=== PATIENT | female | born 1970 | race Caucasian/White ===

== ENCOUNTER 2019-07-07 07:47 | Emergency (ER) | payer OTHER ==
[~2019-07-07] VITALS: Ht 175.3 cm; Wt 81.7 kg
[2019-07-07] MEDS ORDERED: BACPOLTO RIGHTEYE (08:39)
== END 2019-07-07 08:51 | disposition home or self-care (01) ==
LOC: ER 07:47
DX: H10.021 Other mucopurulent conjunctivitis, right eye (principal); Z88.8 Allergy status to other drugs, medicaments and biological substances
CPT/HCPCS: 99283

== ENCOUNTER 2021-02-22 06:54 | Day surgery (SDC) | payer OTHER ==
[~2021-02-22] VITALS: Ht 175.3 cm; Wt 91.9 kg
[~2021-02-22 06:54] MED LIST: B COMPLEX FORM0.4 MG; BACPOLTO RIGHTEYE; FOLI1; HYDSUL200; MAGCHL64ER; METTREX2.5; MULVITA; VITAMIN D5000 UNIT
== END 2021-02-22 09:21 | disposition home or self-care (01) ==
LOC: ORSCSDS 06:54
PROVIDERS: Student in an Organized Health Care Education/Training Program
PROC: 0DBH8ZX Excision of Cecum, Via Natural or Artificial Opening Endoscopic, Diagnostic (ICD-10-PCS; principal; 2021-02-22 08:00)
PROC: 0DBN8ZX Excision of Sigmoid Colon, Via Natural or Artificial Opening Endoscopic, Diagnostic (ICD-10-PCS; principal; 2021-02-22 08:00)
PROC: 0DBL8ZX Excision of Transverse Colon, Via Natural or Artificial Opening Endoscopic, Diagnostic (ICD-10-PCS; principal; 2021-02-22 08:00)
PROC: 0DBM8ZX Excision of Descending Colon, Via Natural or Artificial Opening Endoscopic, Diagnostic (ICD-10-PCS; principal; 2021-02-22 08:00)
PROC: 0DBK8ZX Excision of Ascending Colon, Via Natural or Artificial Opening Endoscopic, Diagnostic (ICD-10-PCS; principal; 2021-02-22 08:00)
DX: Z12.11 Encounter for screening for malignant neoplasm of colon (principal); D12.0 Benign neoplasm of cecum; D12.2 Benign neoplasm of ascending colon; D12.3 Benign neoplasm of transverse colon; D12.4 Benign neoplasm of descending colon; D12.5 Benign neoplasm of sigmoid colon
CPT/HCPCS: 88305; J2704; J7120